=== PATIENT | male | born 1960 | race Caucasian/White ===

== ENCOUNTER 2017-04-16 11:45 | Emergency (ER) | payer OTHER ==
[~2017-04-16] VITALS: Ht 170.2 cm; Wt 81.7 kg
[2017-04-16] MEDS ORDERED: ATORVASTATIN CA40 MG PO (12:03)
[2017-04-16] MEDS ORDERED: SYNTHROID125 MCG PO (12:03)
[2017-04-16 12:49] VITALS: BP 116/77
== END 2017-04-16 13:53 | disposition home or self-care (01) ==
LOC: ER 11:45
DX: S61.412A Laceration without foreign body of left hand, initial encounter (principal); F17.210 Nicotine dependence, cigarettes, uncomplicated; W27.8XXA Contact with other nonpowered hand tool, initial encounter; Y93.89 Activity, other specified; Y92.89 Other specified places as the place of occurrence of the external cause; Y99.8 Other external cause status